=== PATIENT | male | born 1975 ===

== ENCOUNTER 2018-06-26 12:17 | Emergency (ER) | payer OTHER ==
[2018-06-26 12:30] VITALS: BP 180/93
--- NOTE | 2018-06-26 12:31 | UC ---
[facility] H[facility] - HPI Summary HPI Summary: Patient presents to urgent care reporting 3 days progressive pain right lower tooth. Patient states today he feels that there is some swelling and pain. No fevers or chills. Patient without temperature sensitivity but does have time sensitivity. Patient states he broke this tooth about a month ago. Patient's parthenogenesis coming . Patient's concern is getting infected. Patient without allergies. Patient without difficulty swallowing. Patient without any other complaints today. Patient's medications reviewed this visit. - History of Current Complaint Chief Complaint: UCDentalProblem Stated Complaint: TOOTHACHE Time Seen by Provider: 06/26/18 12:23 Hx Obtained From: Patient Pain Intensity: 6 - Allergies/Home Medications Allergies/Adverse Reactions: Allergies Allergy/AdvReac Type Severity Reaction Status Date / Time No Known Allergies Allergy Verified 06/26/18 12:24 Home Medications: Home Medications Acetaminophen [Tylenol Extra Strength] 1,000 mg PO Q12HR PRN 06/26/18 [History Confirmed 06/26/18] Aspirin [Ecotrin Low Strength] 81 mg PO DAILY 06/26/18 [History Confirmed ] Atorvastatin* [Lipitor*] 20 mg PO DAILY 06/26/18 [History Confirmed 06/26/18] Lisinopril 10 mg PO DAILY 06/26/18 [History Confirmed 06/26/18] Omeprazole 20 mg PO DAILY 06/26/18 [History Confirmed 06/26/18] PMH/Surg Hx/FS Hx/Imm Hx Previously Healthy: Yes - Surgical History Surgical History: None - Family History Known Family History: Positive: Non-Contributory - Social History Lives: With Family Alcohol Use: None Substance Use Type: None Smoking Status (MU): Never Smoked Tobacco Review of Systems All Other Systems Reviewed And Are Negative: Yes Constitutional: Positive: Negative ENT: Positive: Dental Pain Physical Exam - Summary Physical Exam Summary: Vital Signs Reviewed: Yes A+Ox3, no distress Eyes: Conjunctiva Clear, KRISTEN. EOM intact and full ENT: Hearing grossly normal TM x 2 clear, mmoist, uvula midline, no exudate, no erythema Dental; Pt with poor dentition - multiple cavities Pt with broken #28 with mild edema buccal gumline, no fluctuance no bleeding + TTP no mastoid pain mild right cheeck edema - no erythema, no fluctuance Neck: Positive: Supple Respiratory: Positive: No respiratory distress, No accessory muscle use + CTA throughout no w/r Cardiovascular: RRR nl s1, s2 no m/r CBT <2 sec abd soft + BS nt/nd no guarding, no distension Musculoskeletal Exam: GALLOWAY x 4 without difficulty Strength Intact, ROM Intact Neurological: Positive: Alert, + sensation throughout Psychological: Positive: Normal Response To Family Skin: Positive: no rash, no ecchymosis Triage Information Reviewed: Yes Vital Signs: Initial Vital Signs Temp 97.8 F 06/26/18 12:26 Pulse 66 06/26/18 12:26 Resp 16 06/26/18 12:26 BP 180/93 06/26/18 12:26 Pulse Ox 97 06/26/18 12:26 Dental Complaint Course/Dx - Course Course Of Treatment: Patient presents to urgent care with 3 days progressive dental pain in his right lower jaw. Patient states this morning he thought he was getting swollen. No fevers. No difficulty swallowing. Patient has a dentist appointment this coming . Patient states he broke the tooth about 1 month ago and thinks that infected. On exam patient's vital signs reviewed. Patient does have tenderness and swelling by the buccal gumline of #28. Will start penicillin. Peridex. Motrin Tylenol. Dental follow-up. Return precautions Pt's BP elevated. Pt with pain,h/o htn - recommend f/u with pcp - Differential Dx/Diagnosis Provider Diagnosis: Dental abscess Discharge - Sign-Out/Discharge Documenting (check all that apply): Patient Departure All imaging exams completed and their final reports reviewed: No Studies - Discharge Plan Condition: Stable Disposition: HOME Prescriptions: Chlorhexidine MW 0.12% 473ML* [Peridex Mouth Wash 0.12%*] 15 ml SWISH SPIT TID # 1 btl Penicillin VK 500 MG TAB(NF) [Penicillin VK 500 mg Tab] 500 mg PO TID #30 tab Patient Education Materials: Dental Abscess (ED) Referrals: Ryan MAYO,Serge Lancaster [Primary Care Provider] - Additional Instructions: - Okay to alternate ibuprofen (Advil, Motrin) and Tylenol every 3 hours for pain. Take with food. Do NOT take for more than 4-5 days -Swish and spit with warm salt water or prescription mouth rinse 3-4 times a day. -Take antibiotics as prescribed until gone -Keep your appointment as scheduled on . If you develop swelling inside your mouth, difficulty with chewing or any other concerns it is recommended you go to the emergency department for further management - Billing Disposition and Condition Condition: STABLE Disposition: Home
== END 2018-06-26 12:50 | disposition home or self-care (01) ==
LOC: UCEAST 12:17
DX: K04.7 Periapical abscess without sinus (principal); Z79.82 Long term (current) use of aspirin
CPT/HCPCS: 99202; G0463